=== PATIENT | female | born 1965 | race African-American/Black ===

== ENCOUNTER 2018-10-17 19:24 | Emergency (ER) | payer SELFPAY ==
[~2018-10-17] VITALS: Ht 162.6 cm; Wt 86.6 kg
[~2018-10-17 19:24] MED LIST: ACET1TAB40 PO; ALBU18HF INHALATION; BACITUD TOP; ELIM TOP; FLUC150T PO; FLUO60SO12 TOP; IBUP-1542 PO; METR500T PO
[2018-10-17 19:31] VITALS: Ht 162.6 cm; Wt 86.6 kg
[2018-10-17] MEDS ORDERED: BACITRACIN 0.9 GM OINT TOP ONE (22:00)
[2018-10-17] MEDS ORDERED: IBUPROFEN 600 MG TAB PO ONE (22:00)
[2018-10-17 22:10] VITALS: BP 136/69; PULSE 78; RESP 18
[2018-10-17] MEDS ORDERED: BACITRACIN 0.5%/ZINC 28.35 GM OINT TOP ONE (22:30)
== END 2018-10-17 22:13 | disposition home or self-care (01) ==
LOC: FTE 19:24
DX: T22.211A Burn of second degree of right forearm, initial encounter (principal); J45.909 Unspecified asthma, uncomplicated; X98.2XXA Assault by hot fluids, initial encounter